=== PATIENT | female | born 1975 | race Two or more races ===

== ENCOUNTER 2019-07-11 07:46 | Emergency (ER) | payer OTHER ==
[~2019-07-11] VITALS: Ht 157.5 cm; Wt 49.9 kg
[2019-07-11] MEDS ORDERED: HYZAAR 100-12.1 EACH PO (08:13)
== END 2019-07-11 10:06 | disposition home or self-care (01) ==
LOC: ER 07:46
DX: S01.82XA Laceration with foreign body of other part of head, initial encounter (principal); S40.011A Contusion of right shoulder, initial encounter; W18.09XA Striking against other object with subsequent fall, initial encounter; Y93.89 Activity, other specified; Y92.69 Other specified industrial and construction area as the place of occurrence of the external cause; Y99.8 Other external cause status

== ENCOUNTER 2019-07-18 07:11 | Emergency (ER) | payer OTHER ==
[~2019-07-18] VITALS: Ht 157.5 cm; Wt 49.9 kg
[~2019-07-18 07:11] MED LIST: HYZAAR 100-12.1 EACH PO
== END 2019-07-18 09:00 | disposition home or self-care (01) ==
LOC: ER 07:11
DX: Z48.02 Encounter for removal of sutures (principal)

== ENCOUNTER 2020-07-10 08:46 | Outpatient (CLI) | payer OTHER | END 2020-07-10 08:49 | disposition home or self-care (01) | LOC: MAMO-SONO 08:46 | PROVIDERS: ATTEND Obstetrics & Gynecology | DX: D25.1 Intramural leiomyoma of uterus (principal); R92.0 Mammographic microcalcification found on diagnostic imaging of breast; Z12.31 Encounter for screening mammogram for malignant neoplasm of breast; N64.59 Other signs and symptoms in breast; N92.0 Excessive and frequent menstruation with regular cycle ==

== ENCOUNTER 2021-01-23 08:00 | Outpatient (CLI) | payer OTHER | END 2021-01-23 08:30 | disposition home or self-care (01) | LOC: PPH VACUNA 08:00 | DX: Z23 Encounter for immunization (principal) ==

== ENCOUNTER 2021-02-13 08:00 | Outpatient (CLI) | payer OTHER | END 2021-02-13 08:30 | disposition home or self-care (01) | LOC: PPH VACUNA 08:00 | DX: Z23 Encounter for immunization (principal) ==

== ENCOUNTER 2024-08-22 11:34 | Outpatient (CLI) | payer OTHER | END 2024-08-22 11:43 | disposition home or self-care (01) | LOC: MAMO-SONO 11:34 | PROVIDERS: ATTEND Obstetrics & Gynecology | DX: N60.09 Solitary cyst of unspecified breast (principal) ==